=== PATIENT | female | born 1970 | race Caucasian/White ===

== ENCOUNTER 2017-07-13 18:00 | Emergency (ER) | payer OTHER ==
[2017-07-13 18:08] VITALS: BP 135/75
--- NOTE | 2017-07-13 18:38 | ED Physician Documentation ---
History of Present Illness - Stated complaint Stated Complaint: FATIGUE - Chief complaint Chief Complaint: General - History obtained from History obtained from: Patient - History of Present Illness Timing: Other (47-year-old woman with history of hypothyroidism after thyroidectomy for Graves' disease and anemia for which she had upper and lower endoscopies without relevant findings. She has been on iron supplementation. Over the last few weeks she has had increasing fatigue with palpitations at night when she is walking upstairs. Her weights up a little bit but not much. She has had some dry skin and loss of hair. No other health problems. No recent travel, cough, fever.) Review of Systems Ten Systems: 10 systems reviewed and negative Constitutional: reports: Fatigue. denies: Fever, Chills, Sweats Throat: denies: Dental pain / toothache Cardiac: denies: Chest pain / pressure, Palpitations Respiratory: denies: Dyspnea, Cough GI: denies: Abdominal Pain PD PAST MEDICAL HISTORY - Past Medical History Cardiovascular: Murmur Respiratory: Shortness of breath Neuro: Headache/migraine Endocrine/Autoimmune: HyPOthyroidism GI: GERD [employer] SALES REPRESENTATIVE: None : None HEENT: Other Psych: None Musculoskeletal: None Derm: None - Past Surgical History Past Surgical History: Yes Ortho: Other - Present Medications Home Medications: Ambulatory Orders Medication Instructions Recorded Confirmed Iron 18 mg PO DAILY 08/07/15 07/13/17 Levothyroxine [Synthroid] 0.5 mcg PO DAILY 08/07/15 07/13/17 Magnesium 250 mg PO DAILY 07/13/17 07/13/17 - Allergies Allergies/Adverse Reactions: Allergies Allergy/AdvReac Type Severity Reaction Status Date / Time morphine Allergy Severe RHR, nausea Verified 07/13/17 18:08 Sulfa (Sulfonamide Allergy Rash Verified 07/13/17 18:08 Antibiotics) - Social History Does the pt smoke?: No Smoking Status: Never smoker Does the pt drink ETOH?: No Does the pt have substance abuse?: No - Immunizations Immunizations are current?: No - POLST Patient has POLST: No PD ED PE NORMAL - Vitals Vital signs reviewed: Yes - General General: Alert and oriented X 3, No acute distress - HEENT HEENT: PERRL, EOMI, Ears normal, Pharynx benign - Neck Neck: Supple, no meningeal sign, No bony TTP. No: Thyroid normal (History of thyroidectomy with appropriate scar) - Cardiac Cardiac: RRR, No murmur - Respiratory Respiratory: No respiratory distress, Clear bilaterally - Abdomen Abdomen: Normal bowel sounds, Soft, Non tender - Back Back: No CVA TTP, No spinal TTP - Derm Derm: Normal color, Warm and dry - Extremities Extremities: No edema, No calf tenderness / cord - Neuro Neuro: Alert and oriented X 3, Normal speech Eye Opening: Spontaneous Motor: Obeys Commands Verbal: Oriented GCS Score: 15 - Psych Psych: Normal mood, Normal affect Results - Vitals Vitals: Vital Signs - 24 hr 07/13/17 18:03 Temperature 36.1 C L Heart Rate 64 Respiratory 18 Rate Blood Pressure 135/75 H O2 Saturation 100 Oxygen O2 Source Room air - EKG (time done) 1819 Rate: Rate (enter#) (63) Rhythm: NSR [place]: Normal Intervals: Normal ME QRS: Normal Ischemia: Normal ST segments Computer interpretation: Agree with computer - Labs Labs: Laboratory Tests 07/13/17 07/13/17 07/13/17 18:49 18:49 18:49 WBC 5.7 RBC 4.32 Hgb 11.7 L Hct 35.5 L MCV 82.2 MCH 27.0 MCHC 32.9 RDW 17.4 H Plt Count 252 MPV 9.1 Neut # 3.0 Lymph # 1.9 Parker # 0.4 Eos # 0.3 Baso # 0.1 Absolute Nucleated RBC 0.00 Nucleated RBC % 0.1 Sodium 138 Potassium 3.5 Chloride 104 Carbon Dioxide 26 Anion Gap 8.0 BUN 11 Creatinine 0.6 Estimated GFR (MDRD) 108 Glucose 93 Calcium 9.0 Total Bilirubin 0.2 AST 19 ALT 15 Alkaline Phosphatase 37 L Total Protein 7.3 Albumin 3.9 Globulin 3.4 Albumin/Globulin Ratio 1.1 Lipase 22 TSH 4.52 Urine Color Urine Clarity Urine pH Ur Specific [place] Urine Protein Urine Glucose (UA) Urine Ketones Urine Occult Blood Urine Nitrite Urine Bilirubin Urine Urobilinogen Ur Leukocyte Esterase Ur Microscopic Review Urine Culture Comments Urine HCG, Qual 07/13/17 19:22 WBC RBC Hgb Hct MCV MCH MCHC RDW Plt Count MPV Neut # Lymph # Parker # Eos # Baso # Absolute Nucleated RBC Nucleated RBC % Sodium Potassium Chloride Carbon Dioxide Anion Gap BUN Creatinine Estimated GFR (MDRD) Glucose Calcium Total Bilirubin AST ALT Alkaline Phosphatase Total Protein Albumin Globulin Albumin/Globulin Ratio Lipase TSH Urine Color YELLOW Urine Clarity CLEAR Urine pH 6.0 Ur Specific [place] >=1.030 H Urine Protein NEGATIVE Urine Glucose (UA) NEGATIVE Urine Ketones NEGATIVE Urine Occult Blood NEGATIVE Urine Nitrite NEGATIVE Urine Bilirubin NEGATIVE Urine Urobilinogen 0.2 (NORMAL) Ur Leukocyte Esterase NEGATIVE Ur Microscopic Review NOT INDICATED Urine Culture Comments NOT INDICATED Urine HCG, Qual NEGATIVE PD MEDICAL DECISION MAKING - ED course ED course: She presents with an exacerbation of chronic fatigue without clear cause on examination or lab work. Departure - Departure Disposition: Home, Self Care Clinical Impression: Fatigue Qualifiers: Fatigue type: chronic, unspecified Qualified Code(s): R53.82 - Chronic fatigue , unspecified Condition: Good Record reviewed to determine appropriate education?: Yes Comments: No specific reason is found on testing for your fatigue tonight. Return if worse. Follow-up with your doctor for further evaluation and treatment. You are anemic, but your hemoglobin is 11.7 which should not be enough to make you significantly symptomatic. Your blood pressure was elevated today on check into the emergency department. This does not mean that you have hypertension, it is a common phenomenon to come to the emergency department and have elevated blood pressure. I recommend that you see your primary care physician within the week to have it rechecked when you are feeling better.
[2017-07-13 18:58] LABS: BASOPHILS # (AUTO) 0.1 10^3/uL (0.0-0.1); BASOPHILS % (AUTO) 1.9 %; EOSINOPHILS # (AUTO) 0.3 10^3/uL (0.0-0.7); EOSINOPHILS % (AUTO) 4.6 %; HCT - HEMATOCRIT 35.5 % (37.0-47.0); HGB - HEMOGLOBIN 11.7 g/dL (12.0-16.0); LYMPHOCYTES # (AUTO) 1.9 10^3/uL (1.5-3.5); LYMPHOCYTES % (AUTO) 33.3 %; MEAN CORPUSCULAR HGB CONC 32.9 g/dL (32.0-36.0); MEAN CORPUSCULAR VOLUME 82.2 fL (81.0-99.0); MEAN PLATELET VOLUME 9.1 fL (7.9-10.8); MONOCYTES # (AUTO) 0.4 10^3/uL (0.0-1.0); MONOCYTES % (AUTO) 6.6 %; NEUTROPHILS % (AUTO) 53.6 %; NUCLEATED RED BLOOD CELLS AUTO 0.1 /100WBC; RED BLOOD COUNT 4.32 10^6/uL (4.20-5.40); RED CELL DISTRIBUTION WIDTH 17.4 % (12.0-15.0); UNCORRECTED WHITE BLOOD COUNT 5.7 x10^3/uL; WHITE BLOOD COUNT 5.7 x10^3/uL (4.8-10.8)
[2017-07-13 19:10] LABS: ALBUMIN/GLOBULIN RATIO 1.1 (1.0-2.2); BILIRUBIN,TOTAL 0.2 mg/dL (0.2-1.0); CREATININE 0.6 mg/dL (0.4-1.0); POTASSIUM 3.5 mmol/L (3.5-5.0); TOTAL PROTEIN 7.3 g/dL (6.7-8.2)
[2017-07-13 19:29] LABS: BILIRUBIN,URINE NEGATIVE (NEGATIVE)
[2017-07-13 19:31] LABS: HCG UR QUAL NEGATIVE; UA CHARGE (STRIP ONLY) YES; UR CULTURE IF IND NOT INDICATED
== END 2017-07-13 20:16 | disposition home or self-care (01) ==
LOC: ED 18:00
DX: R53.82 Chronic fatigue, unspecified (principal); R03.0 Elevated blood-pressure reading, without diagnosis of hypertension; E89.0 Postprocedural hypothyroidism; Z86.2 Personal history of diseases of the blood and blood-forming organs and certain disorders involving the immune mechanism; K21.9 Gastro-esophageal reflux disease without esophagitis
CPT/HCPCS: 36415; 80053; 81001; 81003; 81025; 83690; 84443; 85025; 87086; 93005; 99283; 99284

== ENCOUNTER 2017-10-02 16:05 | Emergency (ER) | payer OTHER ==
[2017-10-02] MEDS ORDERED: CYCLOBENZAPRINE 10 MG TABLET PO STA (17:36)
[2017-10-02] MEDS ORDERED: LIDOCAINE PATCH 5% TOP STA (17:36)
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
[2017-10-02] MEDS ORDERED: ACETAMINOPHEN 325 MG TABLET PO STA (17:49)
--- NOTE | 2017-10-02 18:37 | XRAY Preliminary Report ---
Exam: XR CHEST 2 VIEW X-RAY IMPRESSION: Normal 2-view chest radiography. [facility] SITE ID: [id number]
--- NOTE | 2017-10-02 18:38 | XRAY Preliminary Report ---
Exam: XR CERVICAL SPINE 2 VIEW IMPRESSION: Normal cervical spine radiography. [facility] SITE ID: [id number]
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
[2017-10-02 19:07] VITALS: BP 117/69
== END 2017-10-02 19:11 | disposition home or self-care (01) ==
LOC: ED 16:05
DX: M54.2 Cervicalgia (principal); M54.9 Dorsalgia, unspecified; V89.2XXA Person injured in unspecified motor-vehicle accident, traffic, initial encounter
CPT/HCPCS: 71046; 72040; 99283; A9270

== ENCOUNTER 2018-09-24 14:11 | Outpatient (CLI) | payer OTHER ==
--- NOTE | 2018-09-24 16:24 | MRI Report ---
Reason: MIGRAINE,UNSPECIFIED,NOT INTRACTABLE,WITHOUT STATU Procedure Date: 09/24/2018 Accession Number: [id number] / [id number] Procedure: MRI - Brain W/O CPT Code: FULL RESULT: MRI BRAIN WITHOUT CONTRAST INDICATION: 48-year-old female. Migraine, unspecified, not intractable, without status migrainous. TECHNIQUE: 1. T1 sagittal and fat saturated T2 coronal. 2. Axial FLAIR, T2, T2* and DWI. COMPARISON: Head CT 08/07/2015. FINDINGS: Ventricular size is normal. A few small T2 hyperintense foci are identified in the deep and subcortical white matter of the frontal lobes bilaterally. Signal intensity of cortex and white matter is otherwise normal. Flow voids are demonstrated in the main intracranial arteries. No abnormal diffusion restriction is demonstrated. No evidence of acute or chronic hemorrhage on T2*GRE sequence. No abnormal extra-axial fluid collection. No mass effect or midline shift. Limited evaluation of the orbits reveals no gross pathology. There is circumferential mucosal thickening in the right maxillary sinus. An air-fluid level is seen within the sinus. Mucosal thickening is seen in multiple ethmoid air cells. The paranasal sinuses are otherwise clear. No mastoid or middle ear effusion. Marrow signal intensity in the regional skeletal structures is unremarkable. IMPRESSION: 1. A few small T2 hyperintensities are seen in the frontal white matter as described. The etiology is uncertain. 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 2. Otherwise unremarkable, unenhanced brain MRI. No evidence of hemorrhage, space-occupying mass lesion or other potential cause for headaches. 3. Air-fluid level in right maxillary sinus. In the appropriate clinical setting this certainly could represent active sinusitis.
== END 2018-09-24 14:12 | disposition home or self-care (01) ==
LOC: DI 14:11
PROVIDERS: ATTEND Family Medicine
DX: G43.909 Migraine, unspecified, not intractable, without status migrainosus (principal)
CPT/HCPCS: 70551